=== PATIENT | female | born 1985 | race Asian ===

== ENCOUNTER 2017-09-28 16:41 | Emergency (ER) | payer BC ==
--- NOTE | 2017-09-28 16:55 | EDPHY ---
H & P Time Seen by Provider: 09/28/17 16:55 HPI/ROS: CHIEF COMPLAINT: Right flank and abdominal pain HISTORY OF PRESENT ILLNESS: The patient presents the ED with complaints of intermittent right flank and abdominal pain that began on Wednesday. The patient was seen at urgent care reportedly had a negative urinalysis performed yesterday. The patient does have a prior history of appendectomy. The patient denies fever. The patient denies additional acute complaints such as fever, cough or congestion. The patient reports she is having paroxysms of bilateral back pain. She denies any armando hematuria. She denies additional acute complaints. REVIEW OF SYSTEMS: A comprehensive 10 point review of systems is otherwise negative aside from elements mentioned in the history of present illness. Source: Patient Exam Limitations: No limitations - Medical/Surgical History PMH: Past medical history: Appendectomy - Family History Significant Family History: No pertinent family hx - Physical Exam Exam: General Appearance: Alert, mild discomfort Eyes: Pupils equal and round no pallor or injection ENT, Mouth: Mucous membranes moist Respiratory: There are no retractions, lungs are clear to auscultation Cardiovascular: Regular rate and rhythm Gastrointestinal: Tenderness to palpation right lower quadrant, right CVA tenderness Neurological: 5/5 strength all 4 extremities Skin: Warm and dry, no rashes Musculoskeletal: Neck is supple nontender Extremities: symmetrical, full range of motion Psychiatric: Patient is oriented X 3, there is no agitation Constitutional: Initial Vital Signs Temperature (C) 37.1 C 09/28/17 17:37 Heart Rate 84 09/28/17 17:37 Respiratory Rate 16 09/28/17 17:37 O2 Sat (%) 97 09/28/17 17:37 O2 Delivery Mode Room Air Allergies/Adverse Reactions: No Known Allergies Allergy (Unverified 09/28/17 17:41) Home Medications: Medication Instructions Recorded Hydrocodone/APAP 5/325 [Franklin 1 - 2 each PO Q6 PRN #20 tab 09/28/17 5/325] Ondansetron Odt [Zofran Odt] 4 mg PO Q4PRN PRN #20 tab 09/28/17 Pyridium 09/28/17 levOFLOXACIN [Levaquin] 500 mg PO DAILY #10 tab 09/28/17 Medical Decision Making ED Course/Re-evaluation: The patient presents to the ED with several days of dysuria, right flank pain and urinary frequency. She reportedly had a negative urine dipstick test yesterday. The patient was noted to have right CVA tenderness. She has a prior history of appendectomy. The patient has not been on recent antibiotics. Her urinalysis does demonstrate bacteriuria, pyuria and hematuria. The patient received 1 g of ceftriaxone. The patient will be treated for pyelonephritis. I re-evaluated the patient at 6:45 p.m. She is nontoxic well-appearing. She will be given a prescription for Levaquin, Franklin and Zofran. Differential Diagnosis: Differential diagnosis considered includes cystitis, pyelonephritis, perforation , obstruction, nephrolithiasis - Data Points Laboratory Results: Laboratory Results 09/28/17 17:38 09/28/17 17:38 09/28/17 09/28/17 09/28/17 17:38 17:38 17:38 WBC RBC Hgb Hct MCV MCH MCHC RDW Plt Count MPV Neut % (Auto) Lymph % (Auto) Gregory % (Auto) Eos % (Auto) Baso % (Auto) Nucleat RBC Rel Count Absolute Neuts (auto) Absolute Lymphs (auto) Absolute Monos (auto) Absolute Eos (auto) Absolute Basos (auto) Absolute Nucleated RBC Immature Gran % Immature Gran # Sodium 141 mEq/L mEq/L (135-145) Potassium 3.8 mEq/L mEq/L (3.3-5.0) Chloride 104 mEq/L mEq/L (97-110) Carbon Dioxide 24 mEq/l mEq/l (22-31) Anion Gap 13 mEq/L mEq/L (8-16) BUN 5 mg/dL L mg/dL (7-23) Creatinine 0.5 mg/dL L mg/dL (0.6-1.0) Estimated GFR > 60 Glucose 115 mg/dL H mg/dL (70-100) Calcium 9.1 mg/dL mg/dL (8.5-10.4) Beta HCG, Qual NEGATIVE Urine Color NICHOLAS Urine Appearance HAZY Urine pH 6.0 (5.0-7.5) Ur Specific [place] 1.008 (1.002-1.030) Urine Protein 2+ H (NEGATIVE) Urine Ketones NEGATIVE (NEGATIVE) Urine Blood 3+ H (NEGATIVE) Urine Nitrate POSITIVE H (NEGATIVE) Urine Bilirubin NEGATIVE (NEGATIVE) Urine Urobilinogen NEGATIVE EU EU (0.2-1.0) Ur Leukocyte Esterase 3+ H (NEGATIVE) Urine RBC 50-182 /hpf H /hpf (0-3) Urine WBC 50-182 /hpf H /hpf (0-3) Ur Epithelial Cells TRACE /lpf /lpf (NONE-1+) Urine Crystals PRESENT /hpf /hpf (NONE SEEN) Urine Bacteria 2+ /hpf H /hpf (NONE SEEN) Urine Mucus 1+ /lpf /lpf (NONE-1+) Urine Glucose NEGATIVE (NEGATIVE) 09/28/17 17:38 WBC 10.37 10^3/uL H 10^3/uL (3.80-9.50) RBC 4.51 10^6/uL 10^6/uL (4.18-5.33) Hgb 12.7 g/dL g/dL (12.6-16.3) Hct 37.4 % L % (38.0-47.0) MCV 82.9 fL fL (81.5-99.8) MCH 28.2 pg pg (27.9-34.1) MCHC 34.0 g/dL g/dL (32.4-36.7) RDW 13.1 % % (11.5-15.2) Plt Count 267 10^3/uL 10^3/uL (150-400) MPV 10.4 fL fL (8.7-11.7) Neut % (Auto) 70.0 % % (39.3-74.2) Lymph % (Auto) 21.1 % % (15.0-45.0) Gregory % (Auto) 8.3 % % (4.5-13.0) Eos % (Auto) 0.2 % L % (0.6-7.6) Baso % (Auto) 0.2 % L % (0.3-1.7) Nucleat RBC Rel Count 0.0 % % (0.0-0.2) Absolute Neuts (auto) 7.26 10^3/uL H 10^3/uL (1.70-6.50) Absolute Lymphs (auto) 2.19 10^3/uL 10^3/uL (1.00-3.00) Absolute Monos (auto) 0.86 10^3/uL H 10^3/uL (0.30-0.80) Absolute Eos (auto) 0.02 10^3/uL L 10^3/uL (0.03-0.40) Absolute Basos (auto) 0.02 10^3/uL 10^3/uL (0.02-0.10) Absolute Nucleated RBC 0.00 10^3/uL 10^3/uL (0-0.01) Immature Gran % 0.2 % % (0.0-1.1) Immature Gran # 0.02 10^3/uL 10^3/uL (0.00-0.10) Sodium Potassium Chloride Carbon Dioxide Anion Gap BUN Creatinine Estimated GFR Glucose Calcium Beta HCG, Qual Urine Color Urine Appearance Urine pH Ur Specific [place] Urine Protein Urine Ketones Urine Blood Urine Nitrate Urine Bilirubin Urine Urobilinogen Ur Leukocyte Esterase Urine RBC Urine WBC Ur Epithelial Cells Urine Crystals Urine Bacteria Urine Mucus Urine Glucose Medications Given: Discontinued Medications Ceftriaxone Sodium/Dextrose (Rocephin 1 Gm (Premix)) 50 mls @ 100 mls/hr IV EDNOW ONE PRN Reason: Protocol Stop: 09/28/17 18:41 Last Admin: 09/28/17 18:38 Dose: 50 mls Ondansetron HCl (Zofran) 4 mg IVP EDNOW ONE Stop: 09/28/17 17:45 Last Admin: 09/28/17 18:05 Dose: 4 mg Departure - Departure Disposition: Home, Routine, Self-Care Clinical Impression: Acute pyelonephritis Condition: Good Instructions: Hydrocodone/Acetaminophen (By mouth), Ondansetron (By mouth), Levofloxacin (By mouth), Urinary Tract Infection in Women (ED) Additional Instructions: 1. Please take antibiotics as directed. 2. Franklin as needed for pain. 3. Zofran as needed for nausea. 4. Take Ibuprofen or Motrin 600 mg by mouth three times a day. 5. Return to the ED for intractable pain, high fever, vomiting or other concerns. Referrals: NONE *PRIMARY CARE P,. [Primary Care Provider] - As per Instructions Prescriptions: Hydrocodone/APAP 5/325 [Franklin 5/325] 1 - 2 each PO Q6 PRN #20 tab PRN Reason: for pain levOFLOXACIN [Levaquin] 500 mg PO DAILY #10 tab Ondansetron Odt [Zofran Odt] 4 mg PO Q4PRN PRN #20 tab PRN Reason: For Nausea
[2017-09-28 17:44] LABS: PLATELET COUNT 267 10^3/uL (150-400)
[2017-09-28] MEDS ORDERED: ONDANSETRON 4 MG/2 ML VIAL IVP ONE (17:44)
[2017-09-28 19:27] VITALS: BP 93/69
== END 2017-09-28 19:27 | disposition home or self-care (01) ==
DX: N10 Acute pyelonephritis (principal); B96.20 Unspecified Escherichia coli [E. coli] as the cause of diseases classified elsewhere; Z90.89 Acquired absence of other organs
CPT/HCPCS: 96365; J0696; J2405